=== PATIENT | female | born 1955 | race Caucasian/White ===

== ENCOUNTER 2022-12-05 12:35 | Emergency (ER) | payer MEDICARE, SELFPAY ==
--- NOTE | ~2022-12-05 | XR_ITS ---
EXAMINATION: XR heel RT min 2V DATE: 12/05/2022 13:05 INDICATION: Right heel pain TECHNIQUE: Lateral and axial views of the right calcaneus were obtained. COMPARISON: None. FINDINGS: Bone alignment is normal. No fracture. Mild osteoarthritis with subarticular cystic change at the sec ond tarsal metatarsal joint. Moderate-sized plantar calcaneal spur. Tiny enthesopathic ossicle at the distal Achilles tendon. No erosions. Soft tissues are unremarkable. No ankle joint effusion. IMPRESSION: 1. Enthesopathic changes at the calcaneal insertions of the Achilles tendon and plantar aponeurosis i ncluding moderate-sized plantar calcaneal spur. Reviewed, dictated and finalized at location B. IMPRESSION: 1. Enthesopathic changes at the calcaneal insertions of the Achilles tendon and plantar aponeurosis including moderate-sized plantar calcaneal spur.
--- NOTE | 2022-12-05 12:48 | ED.LOWEXIN ---
HPI - Extremity Injury (Lower) General Chief Complaint: Extremity Problem,Nontraumatic Stated Complaint: Heel Pain Time Seen by Provider: 12/05/22 12:38 Source: patient Mode of arrival: ambulatory Limitations: no limitations History of Present Illness HPI Narrative: Wendy is a 67-year-old female patient presenting to the clinic with complaints of right heel pain times. She reports no known injury. Pain is been going on for a long time however it has been gradually worse since . Has been taking some ibuprofen and has been using a walking boot and this helped the heel pain some. Related Data Home Medications Medication Instructions Recorded Confirmed indapamide 1.25 mg tablet 1.25 mg PO DIRECTED 12/05/22 12/05/22 levothyroxine 125 mcg tablet 125 mcg PO DAILY 12/05/22 12/05/22 losartan 50 mg tablet 50 mg PO DAILY 12/05/22 12/05/22 metformin 500 mg tablet 500 mg PO DIRECTED 12/05/22 12/05/22 semaglutide 1 mg/dose (4 mg/3 mL) 1 mg subcut WEEKLY 12/05/22 12/05/22 subcutaneous pen injector (Ozempic) Allergies Allergy/AdvReac Type Severity Reaction Status Date / Time No Known Allergies Allergy Mild Unverified 12/05/22 13:14 Review of Systems Review of Systems: Pertinent positives per HPI. Patient denies any fever, chills, rash, headache, visual changes, dizziness, cough, runny nose, sore throat, shortness of breath, chest pain, palpitations, nausea, vomiting, diarrhea, constipation, abdominal pain, or any urinary issues. PMFSH Comments At the time of my signature, I reviewed and agree with the nursing past medical, surgical, social, and family history. There is no relevant family history pertinent to the patient complaint. Exam Narrative: General: Well-developed, well nourished, in no apparent distress Head: Normocephalic, atraumatic. Cardio: Regular rate and rhythm, s1 and s2 normal, no murmur appreciated. Resp: Clear to auscultation bilaterally, no rhonchi, rales, wheezing or rubs. Musculoskeletal: No deformity, tender to palpation over the plantar fascia and the Achilles tendon, pain worsens with dorsal flexion, grossly normal range of motion, muscle strength strong and equal, peripheral pulse strong, no edema, no cyanosis, normal gait and station Course Course Emergency Course: Portions of this record may have been created with voice recognition software. Level of Care: Express Care Visit Vital Signs Vital signs: Vital signs reviewed MDM - Extremity Injury (Lower) MDM Narrative Medical decision making narrative: At the time of visit patient is resting comfortably on the exam table. X-ray of the right heel was performed and shows anterior and posterior heel spurs. I suspect patient has plantar fasciitis with the heel spurs. Supportive measures were discussed with the patient she voiced understanding discharge instructions. Recommend follow-up with the steam fitter helper to discuss med options for the bone spurs. Differential Diagnosis Differential diagnosis: Likely other (Heel pain, bone spurs, plantar fasciitis, Achilles tendonitis) Imaging Data Radiologist's impression: Close Heel X-Ray (Signed) Aldo Westfall - 12/05/22 Launch?[facility] [address] [facility] [place] [address] XRay Report Signed Patient: Wendy Lawrence : 1955 MR#: [id number] Age/Sex: 67 / F Acct:[id number] Loc: [facility]? ? ADM Date: 12/05/22Attending Dr: Ordering Physician: Lenard Glasgow APRN Date of Service: 12/05/22 Procedure(s): XR heel RT min 2V Accession Number(s): [id number] cc: Lenard Glasgow APRN; Kishore Xiong MD~ EXAMINATION: XR heel RT min 2V DATE: 12/05/2022 13:05 INDICATION: Right heel pain TECHNIQUE: Lateral and axial views of the right calcaneus were obtained. COMPARISON: None. FINDINGS: Bone alignment is normal. No fracture. Mild osteoarthritis with subart
[2022-12-05 12:54] VITALS: BP 140/100; PULSE 87; RESP 16; TEMP 36.7; O2SAT 99
== END 2022-12-05 13:42 | disposition home or self-care (01) ==
PROVIDERS: Emergency Provider Nurse Practitioner Family; PCP Pediatrics
DX: M72.2 Plantar fascial fibromatosis (principal); M77.31 Calcaneal spur, right foot; E11.9 Type 2 diabetes mellitus without complications; M19.90 Unspecified osteoarthritis, unspecified site
CPT/HCPCS: 73650; 99213; G0463